=== PATIENT | female | born 1965 ===

== ENCOUNTER 2020-01-09 05:40 | Day surgery (SDC) | payer OTHER ==
[~2020-01-09 05:40] MED LIST: DEXEDRINE10 MG PO; GABAPENTIN100 M2 PO; LEXAPRO20 MG PO; TRAZODONE HCL150 MG PO; VITAMEDMD REDI1.4 MG PO; VYTORIN 10-101 EACH PO; WELLBUTRIN XL300 MG PO
== END 2020-01-09 12:20 | disposition home or self-care (01) ==
LOC: CIR.AMB 05:40
PROVIDERS: ATTEND Orthopaedic Surgery
DX: M77.12 Lateral epicondylitis, left elbow (principal); Z20.828 Contact with and (suspected) exposure to other viral communicable diseases